=== PATIENT | male | born 1960 | race Caucasian/White ===

== ENCOUNTER 2021-04-18 03:43 | Day surgery (SDC) | payer OTHER ==
--- NOTE | 2021-04-18 04:18 | EDM.PDOC ---
ED HPI GENERAL MEDICAL PROBLEM - General Stated Complaint: CHEST PAIN Time Seen by Provider: 04/18/21 04:12 Source of Information: Reports: Patient History Limitations: Reports: No Limitations - History of Present Illness INITIAL COMMENTS - FREE TEXT/NARRATIVE: 61-year-old male who reports at about 2:58 AM on Sunday morning he awoke with pain in his central chest and upper abdomen. It did not radiate. It did seem to come and go. He states that it would last for about 2-3 hours and then seemed to go away for a short period of time and only come back. This pain is a sharp and sore pain. It does not radiate. It is not associated with any nausea or vomiting. It sometimes is worse with a deep breath. He reports that the pain began about 9:30 PM last night and has been unrelenting all through the night. He reports it is worse than it has been in the past. Still no nausea or vomiting. He has had normal bowel movements. He does report increased urination. He has been at an auction on Sunday and has been exposed to heat today as well. He does feel somewhat weak. No dysuria or hematuria. No change with eating. He does not feel that anything brings this on. He states he does have heart problems but the pain in the past "has not been like this pain". No hemoptysis. No cough. Breathing normally. There are no other associated signs or symptoms. There are no other modifying factors. Onset: Other (2-3 a.m. on 04/16/2021) Duration: Intermittent (Until 9:30 PM last night and it has been constant and continual since then) Location: Reports: Chest, Abdomen Quality: Reports: Sharp, Other (Sore.) Severity: Severe Improves with: Reports: None Worsens with: Reports: Breathing (Sometimes with deep breath.), Other (Palpation) Context: Reports: Other (As above.) Associated Symptoms: Reports: No Other Symptoms Treatments [employer] HAND: Reports: Acetaminophen - Related Data Allergies Allergy/AdvReac Type Severity Reaction Status Date / Time Penicillins Allergy Rash Verified 04/18/21 04:17 Home Meds: Home Meds Acetaminophen 500 mg PO BID 04/18/21 [History] Aspirin [Halfprin] 81 mg PO DAILY 04/18/21 [History] Calcium Carbonate/Vitamin D3 [Calcium 600-Vit D3 200 Tablet] 1 tab PO BEDTIME 04/18/21 [History] Clopidogrel [Plavix] 75 mg PO DAILY 04/18/21 [History] Empagliflozin [Jardiance] 25 mg PO DAILY 04/18/21 [History] Glimepiride [Amaryl] 4 mg PO DAILY 04/18/21 [History] Isosorbide Mononitrate [Imdur] 120 mg PO DAILY 04/18/21 [History] Metoprolol Succinate [Toprol XL 100mg] 100 mg PO DAILY 04/18/21 [History] Multivit with Minerals/Lutein [Vision Plus Lutein Vitamin] 1 each PO DAILY 04/18/21 [History] Multivitamin 1 each PO DAILY 04/18/21 [History] Nitroglycerin [Nitrostat] 0.4 mg SL ASDIRECTED 04/18/21 [History] Omeprazole 20 mg PO DAILY 04/18/21 [History] atorvaSTATin Calcium [Atorvastatin Calcium] 80 mg PO DAILY 04/18/21 [History] lisinopriL [Lisinopril] 10 mg PO DAILY 04/18/21 [History] metFORMIN [Glucophage] 1,000 mg PO BIDMEALS 04/18/21 [History] Past Medical History Cardiovascular History: Reports: Bypass, CAD, High Cholesterol, Hypertension, Stents Gastrointestinal History: Reports: GERD Endocrine/Metabolic History: Reports: Diabetes, Type II - Past Surgical History Cardiovascular Surgical History: Reports: Coronary Artery Bypass, Coronary Artery Stent Other Cardiovascular Surgeries/Procedures: CABG ~1999 Musculoskeletal Surgical History: Reports: Shoulder Surgery Other Musculoskeletal Surgeries/Procedures:: R shoulder arthroscopy ~2012. L shoulder arthroscopy 12-07-17 Social & Family History - Tobacco Use Tobacco Use Status *Q: Unknown Ever Used Tobacco (Nonsmoker.) - Alcohol Use Alcohol Use History: Yes Alcohol Use Frequency: Rarely - Living Situation & Occupation Living situation: Reports: Occupation: Retired (Works on his farm.) ED ROS GENERAL - Review of Systems Review Of Systems: See Below Constitutional: Denies: Fever, Chills HEENT: Denies: Rhinitis, Throat Pain Respiratory: Denies: Shortness of Breath, Cough Cardiovascular: Reports: Chest Pain. Denies: Edema, Lightheadedness Endocrine: Reports: Polydypsia, Polyuria GI/Abdominal: Reports: Abdominal Pain. Denies: Diarrhea, Nausea, Vomiting : Reports: Frequency, Other (Increased urine output). Denies: Dysuria Musculoskeletal: Denies: Neck Pain, Arm Pain, Back Pain, Foot Pain, Joint Swelling Skin: Denies: Pallor, Diaphoresis Neurological: Denies: Confusion, Dizziness, Weakness Psychiatric: Denies: Anxiety Hematologic/Lymphatic: Reports: Easy Bleeding (Plavix.) Immunologic: Denies: Seasonal Allergy, Grass Allergy, Pollen Allergy ED EXAM, GENERAL - Physical Exam Exam: See Below Exam Limited By: No Limitations General Appearance: Alert, WD/WN, Moderate Distress Eye Exam: Bilateral Eye: EOMI, Normal Inspection (Sclera are anicteric) Ears: Normal External Exam, Hearing Grossly Normal Ear Exam: Bilateral Ear: Auricle Normal Nose: Normal Inspection, Normal Mucosa, No Blood Throat/Mouth: Normal Voice, No Airway Compromise, Other (Dry mucous membranes.) Head: Atraumatic, Normocephalic Neck: Normal Inspection, Tender Lateral Respiratory/Chest: No Respiratory Distress, Lungs Clear, Normal Breath Sounds, No Accessory Muscle Use, Other (Tender in his lower central chest and his epigastrium and right upper quadrant.) Cardiovascular: Normal Peripheral Pulses, Regular Rate, Rhythm. No: Gallop/S4 Peripheral Pulses: 2+: Radial (L), Radial (R) GI/Abdominal: Normal Bowel Sounds, Soft, Pelvis Stable, Tender (In epigastrium and right upper quadrant.) Back Exam: Normal Inspection, Full Range of Motion. No: CVA Tenderness (R), CVA Tenderness (L) Extremities: Normal Inspection, Normal Range of Motion, Non-Tender, No Pedal Edema Neurological: Alert, Oriented, CN II-XII Intact, Normal Cognition, No Motor/Sensory Deficits Psychiatric: Normal Affect Skin Exam: Warm, Dry, Intact, Normal Color, No Rash #1 Interpretation EKG Date: 04/18/21 Time: 03:46 Rhythm: NSR Rate (Beats/Min): 89 [place]: Normal P-Wave: Present QRS: Other (Nonspecific IVCD.) ST-T: Other QT: Normal Comparison: NA - No Prior EKG Course - Vital Signs Last Recorded V/S: Last Vital Signs Temp 36.6 C 04/18/21 03:50 Pulse 98 04/18/21 06:45 Resp 18 04/18/21 06:45 BP 174/82 H 04/18/21 06:45 Pulse Ox 97 04/18/21 06:45 - Orders/Labs/Meds Orders: Active Orders 24 hr Category Date Time Status Admission Status [Patient Status] [ADT] Routine ADT 04/18/21 08:29 Ordered Accu Check [Blood Glucose Check, Bedside] [RC] ONETIME Care 04/18/21 07:32 Active EKG Documentation Completion [RC] ASDIRECTED Care 04/18/21 04:21 Active Abdomen Pelvis w Cont [CT] Stat Exams 04/18/21 05:24 Taken Ang Chest [CT] Stat Exams 04/18/21 05:24 Taken Chest 1V Frontal [CR] Stat Exams 04/18/21 04:19 Taken CORONAVIRUS COVID-19 CEM [MOLEC] Stat Lab 04/18/21 08:18 Ordered Sodium Chloride 0.9% [Normal Saline] 1,000 ml Med 04/18/21 04:45 Active IV ASDIRECTED Sodium Chloride 0.9% [Saline Flush] Med 04/18/21 04:19 Active 10 ml FLUSH ASDIRECTED PRN Peripheral IV Insertion Adult [OM.PC] Routine Oth 04/18/21 04:19 Ordered EKG 12 Lead [EK] Routine Ther 04/18/21 04:19 Ordered Medication Orders Sodium Chloride (Normal Saline) 1,000 mls @ 125 mls/hr IV ASDIRECTED TYLER Last Admin: 04/18/21 06:00 Dose: 125 mls/hr Documented by: BRENLOR Sodium Chloride (Sodium Chloride 0.9% 10 Ml Syringe) 10 ml FLUSH ASDIRECTED PRN PRN Reason: Keep Vein Open Labs: Laboratory Tests 04/18/21 04/18/21 04/18/21 Range/Units 04:30 04:30 04:30 WBC 19.2 H (3.2-10.1) x10-3/uL RBC 4.54 (3.90-5.90) x10(6)uL Hgb 14.8 (12.9-17.7) g/dL Hct 43.7 (38.3-50.1) % MCV 96.2 (80.8-98.7) fL MCH 32.5 (27.0-33.3) pg MCHC 33.8 (28.7-35.3) g/dL RDW 13.8 (12.4-15.0) % Plt Count 150 (117-477) x10(3)uL MPV 10.1 (6.7-11.0) fL Add Manual Diff Yes Neutrophils % (Manual) 77 (46-82) % Band Neutrophils % 5 (0-6) % Lymphocytes % (Manual) 12 L (13-37) % Monocytes % (Manual) 6 (4-12) % D-Dimer, Quantitative 0.85 H (0.0-0.59) mg/LFEU Sodium 138 (135-145) mmol/L Potassium 4.1 (3.5-5.3) mmol/L Chloride 101 (100-110) mmol/L Carbon Dioxide 24 (21-32) mmol/L BUN 20 H (7-18) mg/dL Creatinine 1.1 (0.70-1.30) mg/dL Est Cr Clr Drug Dosing 64.26 mL/min Estimated GFR (MDRD) > 60 (>60) BUN/Creatinine Ratio 18.2 (9-20) Glucose 114 (80-116) mg/dL POC Glucose (80-116) mg/dL Calcium 8.9 (8.6-10.2) mg/dL Magnesium 1.7 L (1.8-2.5) mg/dL Total Bilirubin 3.7 H (0.1-1.3) mg/dL AST 23 (5-25) IU/L ALT 57 H (12-36) U/L Alkaline Phosphatase 81 (56-112) IU/L Troponin I (4.0-60.3) pg/mL C-Reactive Protein (0.5-0.9) mg/dL Total Protein 7.6 (6.0-8.0) g/dL Albumin 3.7 (3.2-4.6) g/dL Globulin 3.9 g/dL Albumin/Globulin Ratio 1.0 Lipase (73-393) U/L 04/18/21 04/18/21 04/18/21 Range/Units 04:30 04:30 07:55 WBC (3.2-10.1) x10-3/uL RBC (3.90-5.90) x10(6)uL Hgb (12.9-17.7) g/dL Hct (38.3-50.1) % MCV (80.8-98.7) fL MCH (27.0-33.3) pg MCHC (28.7-35.3) g/dL RDW (12.4-15.0) % Plt Count (117-477) x10(3)uL MPV (6.7-11.0) fL Add Manual Diff Neutrophils % (Manual) (46-82) % Band Neutrophils % (0-6) % Lymphocytes % (Manual) (13-37) % Monocytes % (Manual) (4-12) % D-Dimer, Quantitative (0.0-0.59) mg/LFEU Sodium (135-145) mmol/L Potassium (3.5-5.3) mmol/L Chloride (100-110) mmol/L Carbon Dioxide (21-32) mmol/L BUN (7-18) mg/dL Creatinine (0.70-1.30) mg/dL Est Cr Clr Drug Dosing mL/min Estimated GFR (MDRD) (>60) BUN/Creatinine Ratio (9-20) Glucose (80-116) mg/dL POC Glucose 122 H (80-116) mg/dL Calcium (8.6-10.2) mg/dL Magnesium (1.8-2.5) mg/dL Total Bilirubin (0.1-1.3) mg/dL AST (5-25) IU/L ALT (12-36) U/L Alkaline Phosphatase (56-112) IU/L Troponin I 9.6 (4.0-60.3) pg/mL C-Reactive Protein 23.9 H* (0.5-0.9) mg/dL Total Protein (6.0-8.0) g/dL Albumin (3.2-4.6) g/dL Globulin g/dL Albumin/Globulin Ratio Lipase 68 L (73-393) U/L Meds: Medications Generic Name Dose Route Start Last Admin Trade Name Freq PRN Reason Stop Dose Admin Sodium Chloride 1,000 mls @ 125 mls/hr 04/18/21 04:45 04/18/21 06:00 Normal Saline IV 125 mls/hr ASDIRECTED TYLER Administration Sodium Chloride 10 ml 04/18/21 04:19 Sodium Chloride 0.9% 10 Ml Syringe FLUSH ASDIRECTED PRN Keep Vein Open Discontinued Medications Generic Name Dose Route Start Last Admin Trade Name Freq PRN Reason Stop Dose Admin Hydromorphone HCl 0.5 mg 04/18/21 07:16 04/18/21 07:21 Hydromorphone 2 Mg/Ml Sdv IVPUSH 04/18/21 07:17 0.5 mg ONETIME ONE Administration Sodium Chloride 1,000 mls @ 999 mls/hr 04/18/21 04:32 04/18/21 04:35 Normal Saline IV 04/18/21 05:32 999 mls/hr .BOLUS ONE Administration Ciprofloxacin/Dextrose 400 mg/ 200 mls @ 200 mls/hr 04/18/21 07:22 04/18/21 07:29 Premix IV 04/18/21 08:21 200 mls/hr ONETIME ONE Administration Metronidazole 500 mg/ Premix 100 mls @ 100 mls/hr 04/18/21 07:22 04/18/21 07:30 IV 04/18/21 08:21 100 mls/hr ONETIME ONE Administration Iopamidol 80 ml 04/18/21 05:46 04/18/21 05:59 Iopamidol 755 Mg/Ml 100 Ml Bottle IV 04/18/21 05:47 80 ml . DIRECTED ONE Administration Morphine Sulfate 4 mg 04/18/21 04:32 04/18/21 04:42 Morphine 4 Mg/Ml Vial IVPUSH 04/18/21 04:33 4 mg ONETIME ONE Administration Morphine Sulfate 4 mg 04/18/21 05:19 04/18/21 05:23 Morphine 4 Mg/Ml Vial IVPUSH 04/18/21 05:20 4 mg ONETIME ONE Administration Ondansetron HCl 4 mg 04/18/21 04:32 04/18/21 04:39 Ondansetron 4 Mg/2 Ml Sdv IVPUSH 04/18/21 04:33 4 mg ONETIME ONE Administration - Radiology Interpretation Free Text/Narrative:: Portable chest x-ray showed no acute disease. - Re-Assessments/Exams Free Text/Narrative Re-Assessment/Exam: 04/18/21 04:55: Pain is now down to a 4/10 after the morphine. Patient is remaining vitally stable. Awaiting on (this point and chest x-ray. His EKG shows no STEMI pattern. 04/18/21 05:20: The white blood cell count was 19.2. The CRP was 24. The total bilirubin was 3.7. LFTs are otherwise normal. Lipase is normal. On in his normal. His BUN and creatinine are normal. His d-dimer is elevated at 0.85. Because of pleuritic chest pain, I will order a CTA of his chest. I will also order a CT of his abdomen and pelvis with IV contrast as well. His pain was still a 3-4 red 10 and I have ordered another 4 mg of morphine to be given IV. His liter bolus of normal saline is almost in. I discussed all of this with the patient and with his and they are in agreement with the plan for the CT's. 04/18/21 06:30: Patient is resting comfortably. He had reported his pain was down to a 0-1/10. We are awaiting the results of the CT scan of his chest, abdomen and pelvis. Patient is remaining hemodynamically stable. 04/18/21 07:00: The CT of the chest showed no evidence of pulmonary emboli. The CT scan of abdomen and pelvis showed cholelithiasis with thickening of the gallbladder wall. There was no evidence of dilated CBD. The patient does have an elevated bilirubin at 3.7 but dilated common bile duct on CT scan. He does have pain in his right upper quadrant and epigastrium with elevated white blood cell count and CRP. I am concerned about acute cholecystitis. I have placed a call to Dr. Mccabe to discuss the patient's case with him. The patient remains hemodynamically stable and is resting comfortably now. 04/18/21 07:33: I discussed the patient's case with Dr. Mccabe, surgeon at [facility], and he will see the patient in the emergency department. I discussed all this with the patient and with the patient's and they are in agreement with this plan. I have also ordered ciprofloxacin and Flagyl to be given IV. I will have the nursing staff repeat the patient's blood sugar. We will continue the patient at NPO status for now. We will continue close monitoring of the patient. 04/18/21 08:25: Dr Mccabe has seen the patient and will be taking the patient to the operating room for cholecystectomy later today. He has asked that I have Dr. Lucio, hospitalist, see the patient and admit the patient. I did call and discuss this with Dr. Lucio and he will be coming to see the patient shortly. Departure - Departure Time of Disposition: 08:30 Disposition: Refer to Observation Condition: Fair Clinical Impression: Acute cholecystitis due to biliary calculus, Diabetes mellitus type 2 in nonobese Referrals: Stef Gonsalves MD [Primary Care Provider] - Sepsis Event Note (ED) - Focused Exam Vital Signs: Vital Signs Temp Pulse Resp BP Pulse Ox 04/18/21 06:45 98 18 174/82 H 97 04/18/21 05:45 94 18 144/67 H 94 L 04/18/21 05:30 94 16 159/68 H 94 L 04/18/21 05:15 94 16 162/108 H 96 04/18/21 05:00 94 16 152/96 H 99 04/18/21 04:45 98 18 165/100 H 99 04/18/21 04:15 97 18 162/81 H 97 04/18/21 03:50 36.6 C 04/18/21 03:45 93 16 159/81 H 97 - My Orders Last 24 Hours: My Active Orders 04/18/21 04:19 Chest 1V Frontal [CR] Stat Sodium Chloride 0.9% [Saline Flush] 10 ml FLUSH ASDIRECTED PRN Peripheral IV Insertion Adult [OM.PC] Routine EKG 12 Lead [EK] Routine 04/18/21 04:21 EKG Documentation Completion [RC] ASDIRECTED 04/18/21 04:45 Sodium Chloride 0.9% [Normal Saline] 1,000 ml IV ASDIRECTED 04/18/21 05:24 Abdomen Pelvis w Cont [CT] Stat Ang Chest [CT] Stat 04/18/21 07:32 Accu Check [Blood Glucose Check, Bedside] [RC] ONETIME 04/18/21 08:18 CORONAVIRUS COVID-19 CEM [MOLEC] Stat 04/18/21 08:29 Admission Status [Patient Status] [ADT] Routine - Assessment/Plan Last 24 Hours: My Active Orders 04/18/21 04:19 Chest 1V Frontal [CR] Stat Sodium Chloride 0.9% [Saline Flush] 10 ml FLUSH ASDIRECTED PRN Peripheral IV Insertion Adult [OM.PC] Routine EKG 12 Lead [EK] Routine 04/18/21 04:21 EKG Documentation Completion [RC] ASDIRECTED 04/18/21 04:45 Sodium Chloride 0.9% [Normal Saline] 1,000 ml IV ASDIRECTED 04/18/21 05:24 Abdomen Pelvis w Cont [CT] Stat Ang Chest [CT] Stat 04/18/21 07:32 Accu Check [Blood Glucose Check, Bedside] [RC] ONETIME 04/18/21 08:18 CORONAVIRUS COVID-19 CEM [MOLEC] Stat 04/18/21 08:29 Admission Status [Patient Status] [ADT] Routine
[2021-04-18] MEDS ORDERED: Sodium Chloride 0.9% 10 ML Syringe FLUSH PRN (04:19)
[2021-04-18] MEDS ORDERED: Ondansetron 4 MG/2 ML SDV IVPUSH ONE ×2 (04:32→09:04)
[2021-04-18] MEDS ORDERED: Morphine 4 MG/ML VIAL IVPUSH ONE ×2 (04:32→05:19)
[2021-04-18] MEDS ORDERED: Sodium Chloride 0.9% 1,000 ML IV ONE ×3 (04:32→21:01)
[2021-04-18] MEDS ORDERED: Sodium Chloride 0.9% 1,000 ML IV SCH (04:45)
[2021-04-18] MEDS ORDERED: Iopamidol 755 Mg/ML 100 ML Bottle IV ONE (05:46)
[2021-04-18] MEDS ORDERED: HYDROmorphone 2 MG/ML SDV IVPUSH ONE (07:16)
[2021-04-18] MEDS ORDERED: Ciprofloxacin in D5W 400 MG in Premix Bag 1 BAG IV ONE ×4 (07:22→12:30)
[2021-04-18] MEDS ORDERED: metroNIDAZOLE/Normal Saline 500 MG in Premix Bag 1 BAG IV ONE ×2 (07:22→12:30)
[2021-04-18] MEDS ORDERED: Propofol 200 MG/20 ML SDV IV ONE (09:04)
[2021-04-18] MEDS ORDERED: Labetalol 100 MG/20 ML MDV IV ONE (09:04)
[2021-04-18] MEDS ORDERED: Lactated Ringers 1,000 ML IV ONE (09:04)
[2021-04-18] MEDS ORDERED: Succinylcholine 200 MG/10 ML MDV IV ONE (09:04)
[2021-04-18] MEDS ORDERED: HYDROmorphone 2 MG/ML SDV IV ONE (09:04)
[2021-04-18] MEDS ORDERED: Neostigmine Methylsulfate 10 MG/10 ML MDV IVPUSH ONE (09:04)
[2021-04-18] MEDS ORDERED: Glycopyrrolate 0.2 MG/ML 5 ML MDV IV ONE (09:04)
[2021-04-18] MEDS ORDERED: Midazolam 1 MG/ML 2 ML SDV IV ONE (09:04)
[2021-04-18] MEDS ORDERED: Acetaminophen 1,000 MG/100 ML Infusion Bottle Premix IV ONE (09:04)
[2021-04-18] MEDS ORDERED: fentaNYL 100 MCG/2 ML SDV IV ONE (09:04)
[2021-04-18] MEDS ORDERED: Rocuronium 50 MG/5 ML Vial IV ONE (09:04)
--- NOTE | 2021-04-18 09:21 | PCM.HP.2 ---
H&P History of Present Illness - General Date of Service: 04/18/21 Admit Problem/Dx: Admission Diagnosis/Problem Admission Diagnosis/Problem Acute cholecystitis due to biliary calculus Source of Information: Patient History Limitations: Reports: No Limitations - History of Present Illness Initial Comments - Free Text/Narative: This is a 61-year-old male patient that started having some epigastric pain for a.m. Sunday morning which is 2 days ago. He was on oxygen and continued the pelvis because of the heat. He has some fevers and chills but he thought that was certainly 2. Later to get better and then Sunday morning came back and then Sunday morning at 3 AM it came back again and he came to the ER. Had a CT scan that showed cholelithiasis possible cholecystitis. He says the pain is epigastric and is very sharp. It did radiate down the side of his abdomen 2 then retracted back. It does not radiate to the arm or the back. He says he's not sure if food effects it. He has no nausea vomiting, diarrhea, constipation or blood in the stool. He has a strong cardiac history with a bypass in 1999. He's had stents 2 last time was 6 years ago. Currently he denies any chest pain, shortness of breath, exertional chest pain. He's been told he has a murmur. He can walk up 2 flights of stairs without any difficulty. Denies any bleeding issues. He is on Plavix and the last dose was taken yesterday. - Related Data Allergies/Adverse Reactions: Allergies Allergy/AdvReac Type Severity Reaction Status Date / Time Penicillins Allergy Rash Verified 04/18/21 04:17 Home Medications: Home Meds Acetaminophen 500 mg PO BID 04/18/21 [History] Aspirin [Halfprin] 81 mg PO DAILY 04/18/21 [History] Calcium Carbonate/Vitamin D3 [Calcium 600-Vit D3 200 Tablet] 1 tab PO BEDTIME 04/18/21 [History] Clopidogrel [Plavix] 75 mg PO DAILY 04/18/21 [History] Empagliflozin [Jardiance] 25 mg PO DAILY 04/18/21 [History] Glimepiride [Amaryl] 4 mg PO DAILY 04/18/21 [History] Isosorbide Mononitrate [Imdur] 120 mg PO DAILY 04/18/21 [History] Metoprolol Succinate [Toprol XL 100mg] 100 mg PO DAILY 04/18/21 [History] Multivit with Minerals/Lutein [Vision Plus Lutein Vitamin] 1 each PO DAILY 04/18/21 [History] Multivitamin 1 each PO DAILY 04/18/21 [History] Nitroglycerin [Nitrostat] 0.4 mg SL ASDIRECTED 04/18/21 [History] Omeprazole 20 mg PO DAILY 04/18/21 [History] atorvaSTATin Calcium [Atorvastatin Calcium] 80 mg PO DAILY 04/18/21 [History] lisinopriL [Lisinopril] 10 mg PO DAILY 04/18/21 [History] metFORMIN [Glucophage] 1,000 mg PO BIDMEALS 04/18/21 [History] Past Medical History Cardiovascular History: Reports: Bypass, CAD, High Cholesterol, Hypertension, Stents Gastrointestinal History: Reports: GERD Endocrine/Metabolic History: Reports: Diabetes, Type II - Past Surgical History Cardiovascular Surgical History: Reports: Coronary Artery Bypass, Coronary Artery Stent Social & Family History - Tobacco Use Tobacco Use Status *Q: Unknown Ever Used Tobacco (Nonsmoker.) - Alcohol Use Days Per Week of Alcohol Use: 2 Number of Drinks Per Day: 2 Total Drinks Per Week: 4 - Recreational Drug Use Recreational Drug Use: No - Living Situation & Occupation Living situation: Reports: Occupation: Retired (Works on his farm.) H&P Review of Systems - Review of Systems: Review Of Systems: See Below General: Reports: Fever, Chills HEENT: Reports: No Symptoms Pulmonary: Reports: No Symptoms Cardiovascular: Reports: No Symptoms Gastrointestinal: Reports: Abdominal Pain Genitourinary: Reports: No Symptoms Musculoskeletal: Reports: Joint Pain Skin: Reports: No Symptoms Psychiatric: Reports: No Symptoms Neurological: Reports: No Symptoms Hematologic/Lymphatic: Reports: No Symptoms Immunologic: Reports: No Symptoms Exam - Exam Exam: See Below - Vital Signs Vital Signs: Last Vital Signs Temp 97.8 F 04/18/21 03:50 Pulse 98 04/18/21 06:45 Resp 18 04/18/21 06:45 BP 174/82 H 04/18/21 06:45 Pulse Ox 97 04/18/21 06:45 Weight: 184 lb - Exam General: Alert, Oriented, Cooperative HEENT: Hearing Intact, Mucosa Moist & [place], Posterior Pharynx Clear, TMs Clear Neck: Supple, Trachea Midline Lungs: Clear to Auscultation, Normal Respiratory Effort Cardiovascular: Regular Rate, Regular Rhythm, Systolic Murmur GI/Abdominal Exam: Soft, No Organomegaly, No Distention, Tender (Epigastrium. No Hernandez's sign). No: Normal Bowel Sounds Extremities: Normal Inspection, No Pedal Edema Skin: Warm Neurological: Normal Speech, Normal Tone Neuro Extensive - Mental Status: Oriented x3, Normal Cognition Neuro Extensive - Motor, Sensory, Reflexes: Normal Gait Psychiatric: Alert, Normal Affect, Normal Mood - Patient Data Lab Results Last 24 hrs: Laboratory Results - last 24 hr 04/18/21 04/18/21 04/18/21 Range/Units 04:30 04:30 04:30 WBC 19.2 H (3.2-10.1) x10-3/uL RBC 4.54 (3.90-5.90) x10(6)uL Hgb 14.8 (12.9-17.7) g/dL Hct 43.7 (38.3-50.1) % MCV 96.2 (80.8-98.7) fL MCH 32.5 (27.0-33.3) pg MCHC 33.8 (28.7-35.3) g/dL RDW 13.8 (12.4-15.0) % Plt Count 150 (117-477) x10(3)uL MPV 10.1 (6.7-11.0) fL Add Manual Diff Yes Neutrophils % (Manual) 77 (46-82) % Band Neutrophils % 5 (0-6) % Lymphocytes % (Manual) 12 L (13-37) % Monocytes % (Manual) 6 (4-12) % D-Dimer, Quantitative 0.85 H (0.0-0.59) mg/LFEU Sodium 138 (135-145) mmol/L Potassium 4.1 (3.5-5.3) mmol/L Chloride 101 (100-110) mmol/L Carbon Dioxide 24 (21-32) mmol/L BUN 20 H (7-18) mg/dL Creatinine 1.1 (0.70-1.30) mg/dL Est Cr Clr Drug Dosing 64.26 mL/min Estimated GFR (MDRD) > 60 (>60) BUN/Creatinine Ratio 18.2 (9-20) Glucose 114 (80-116) mg/dL POC Glucose (80-116) mg/dL Calcium 8.9 (8.6-10.2) mg/dL Magnesium 1.7 L (1.8-2.5) mg/dL Total Bilirubin 3.7 H (0.1-1.3) mg/dL AST 23 (5-25) IU/L ALT 57 H (12-36) U/L Alkaline Phosphatase 81 (56-112) IU/L Troponin I (4.0-60.3) pg/mL C-Reactive Protein (0.5-0.9) mg/dL Total Protein 7.6 (6.0-8.0) g/dL Albumin 3.7 (3.2-4.6) g/dL Globulin 3.9 g/dL Albumin/Globulin Ratio 1.0 Lipase (73-393) U/L 04/18/21 04/18/21 04/18/21 Range/Units 04:30 04:30 07:55 WBC (3.2-10.1) x10-3/uL RBC (3.90-5.90) x10(6)uL Hgb (12.9-17.7) g/dL Hct (38.3-50.1) % MCV (80.8-98.7) fL MCH (27.0-33.3) pg MCHC (28.7-35.3) g/dL RDW (12.4-15.0) % Plt Count (117-477) x10(3)uL MPV (6.7-11.0) fL Add Manual Diff Neutrophils % (Manual) (46-82) % Band Neutrophils % (0-6) % Lymphocytes % (Manual) (13-37) % Monocytes % (Manual) (4-12) % D-Dimer, Quantitative (0.0-0.59) mg/LFEU Sodium (135-145) mmol/L Potassium (3.5-5.3) mmol/L Chloride (100-110) mmol/L Carbon Dioxide (21-32) mmol/L BUN (7-18) mg/dL Creatinine (0.70-1.30) mg/dL Est Cr Clr Drug Dosing mL/min Estimated GFR (MDRD) (>60) BUN/Creatinine Ratio (9-20) Glucose (80-116) mg/dL POC Glucose 122 H (80-116) mg/dL Calcium (8.6-10.2) mg/dL Magnesium (1.8-2.5) mg/dL Total Bilirubin (0.1-1.3) mg/dL AST (5-25) IU/L ALT (12-36) U/L Alkaline Phosphatase (56-112) IU/L Troponin I 9.6 (4.0-60.3) pg/mL C-Reactive Protein 23.9 H* (0.5-0.9) mg/dL Total Protein (6.0-8.0) g/dL Albumin (3.2-4.6) g/dL Globulin g/dL Albumin/Globulin Ratio Lipase 68 L (73-393) U/L Result Diagrams: 04/18/21 04:30 04/18/21 04:30 Sepsis Event Note - Evaluation Sepsis Screening Result: No Definite Risk - Focused Exam Vital Signs: Vital Signs Temp Pulse Resp BP Pulse Ox 04/18/21 06:45 98 18 174/82 H 97 04/18/21 05:45 94 18 144/67 H 94 L 04/18/21 05:30 94 16 159/68 H 94 L 04/18/21 05:15 94 16 162/108 H 96 04/18/21 05:00 94 16 152/96 H 99 04/18/21 04:45 98 18 165/100 H 99 04/18/21 04:15 97 18 162/81 H 97 04/18/21 03:50 97.8 F 04/18/21 03:45 93 16 159/81 H 97 Problem List Initiated/Reviewed/Updated: Yes Orders Last 24hrs: Active Orders 24 hr Category Date Time Status Admission Status [Patient Status] [ADT] Routine ADT 04/18/21 08:29 Active Accu Check [Blood Glucose Check, Bedside] [RC] ONETIME Care 04/18/21 07:32 Active EKG Documentation Completion [RC] ASDIRECTED Care 04/18/21 04:21 Active Abdomen Pelvis w Cont [CT] Stat Exams 04/18/21 05:24 Taken Ang Chest [CT] Stat Exams 04/18/21 05:24 Taken Chest 1V Frontal [CR] Stat Exams 04/18/21 04:19 Taken CORONAVIRUS COVID-19 CEM [MOLEC] Stat Lab 04/18/21 08:25 Ordered Sodium Chloride 0.9% [Normal Saline] 1,000 ml Med 04/18/21 04:45 Active IV ASDIRECTED Sodium Chloride 0.9% [Saline Flush] Med 04/18/21 04:19 Active 10 ml FLUSH ASDIRECTED PRN Peripheral IV Insertion Adult [OM.PC] Routine Oth 04/18/21 04:19 Ordered EKG 12 Lead [EK] Routine Ther 04/18/21 04:19 Ordered Medication Orders Sodium Chloride (Normal Saline) 1,000 mls @ 125 mls/hr IV ASDIRECTED [facility] Last Admin: 04/18/21 06:00 Dose: 125 mls/hr Documented by: ESTHER Sodium Chloride (Sodium Chloride 0.9% 10 Ml Syringe) 10 ml FLUSH ASDIRECTED PRN PRN Reason: Keep Vein Open Assessment/Plan Comment:: 1. Admit for observation 2. Surgical consult. Started been done by Dr. Mendoza. He will Operate later today. 3. Nothing by mouth 4. Rocephin and metronidazole IV 5. Accu-Cheks 4 times a day and sliding scale. 6. SCD but no Lovenox 7. Labs been completed. 8. Okay for surgery. EKG has been reviewed. - Mortality Measure Prognosis:: Good
[2021-04-18] MEDS ORDERED: Morphine 2 MG/ML SYRINGE IM PRN (09:25)
[2021-04-18] MEDS ORDERED: Nitroglycerin 0.4 MG Tab.SL SL SCH (09:30)
[2021-04-18] MEDS ORDERED: Morphine 2 MG/ML SYRINGE IVPUSH PRN ×2 (09:46→14:19)
--- NOTE | 2021-04-18 11:35 | CR ---
INDICATION: Chest pain. CHEST ONE VIEW: Portable AP upright view of the chest was obtained 04/18/21, no comparisons. Post median sternotomy change is noted. Pericardial effusion is not suggested. Overlying EKG leads are noted. The heart is normal in size and shape. An active infiltrate or effusion was not identified. IMPRESSION: No acute process. MTDD
--- NOTE | 2021-04-18 11:52 | CONS ---
DATE OF CONSULTATION: 04/18/2021 HISTORY OF PRESENT ILLNESS: This 61-year-old male is seen in the emergency room this morning with development of upper abdominal pain. He says his pain began approximately 48 hours ago, but has persisted and gradually intensified causing his presentation to the emergency room. The pain is primarily in the epigastrium, right upper quadrant and lower chest area. The patient states he did have an episode similar to this about a month ago, but the pain resolved within about 2 hours and he had felt well in between. The patient's pain is severe in nature and somewhat intermittent and crampy. The patient has not had any vomiting or diarrhea associated with this. The patient does recall eating turkey sandwiches the night before the pain started.He does have a history of abdominal bloating in the past, but he felt this was related to medication as it seemed to resolve when he had a change in his diabetic medication. To evaluate his symptoms, the patient underwent a CT scan of the abdomen in the emergency room. This was interpreted as showing a large calcified gallstone impacted in the neck of the gallbladder with some possible gallbladder inflammation. The gallbladder and liver were somewhat enlarged, but no other acute abnormalities were seen. The patient does not have any history of jaundice. Laboratory studies did show an elevated serum white blood cell count at 19,000. Also there is mild bilirubin elevation at over 3, although his alkaline phosphatase is normal. PAST MEDICAL HISTORY: Does include diagnoses of coronary artery disease for which he has had both coronary artery bypass as well as stenting. He also has diabetes and hypertension along with hypercholesterolemia and GERD. His only previous surgery was shoulder surgery, has not had previous abdominal surgery. MEDICATIONS: His medications are reviewed as in his EMR. They do include for his diabetes: 1. Metformin. 2. Jardiance. 3. Amaryl. He also takes: 1. Imdur. 2. Toprol. He takes on a daily basis: 1. Low-dose aspirin. 2. Plavix. SOCIAL HISTORY: The patient is a former smoker. He uses alcohol rarely. He is retired and previously worked at [employer]. REVIEW OF SYSTEMS: The patient has not recently been experiencing any shortness of breath or cough. He did get the COVID-19 vaccine. He has not had any chest pain or palpitations. He denies having difficulty eating. He is able to void without pain and is having no extremity swelling. PHYSICAL EXAMINATION: VITAL SIGNS: Temperature is 36.6, pulse 98, blood pressure is 174/82. GENERAL: The patient is alert, adult male. He is in no acute distress, but does note abdominal pain. HEENT: His head is normocephalic. No scleral icterus. No cervical masses are palpated. HEART: Regular without murmur. LUNGS: Clear. Breath sounds are equal. There is no wheezing. ABDOMEN: Currently soft. There is tenderness to direct palpation in the epigastrium and in the right upper quadrant. This is to a moderate degree. No guarding is noted. I do not feel any abdominal masses or hepatic or splenic enlargement. The remainder of his abdomen is nontender. EXTREMITIES: Show no edema. IMPRESSION: 1. Acute cholecystitis with cholelithiasis. 2. Diabetes. 3. History of coronary artery disease. 4. History of hypertension. PLAN: Advised laparoscopic cholecystectomy. INFORMED CONSENT: I have discussed the proposed operative procedure with the patient, reviewed with him indications, options, and risks, these included, but were not limited to, bleeding, infection, organ injury, and possible need to convert to a laparotomy as well as risks of anesthesia. He agrees to proceed. This will be scheduled for later today. His bilirubin will be followed postoperatively. It is expected that this will likely decrease once the stone and inflammation are removed. /[id number] XAVIER/ELAINE MALONE
[2021-04-18] MEDS ORDERED: Lactated Ringers 1,000 ML IV SCH ×2 (12:00→21:15)
[2021-04-18] MEDS ORDERED: Bupivacaine 0.5% 30 ML SDV INJECT ONE (12:11)
[2021-04-18] MEDS ORDERED: Acetaminophen/HYDROcodone 325-5 MG Tab PO PRN ×2 (14:19)
[2021-04-18] MEDS ORDERED: Ondansetron 4 MG/2 ML SDV IVPUSH PRN (14:19)
--- NOTE | 2021-04-18 14:55 | PCM.OPNOTE ---
- General Post-Op/Procedure Note Date of Surgery/Procedure: 04/18/21 Operative Procedure(s): Laparoscopic Cholecystectomy Findings: Enlarged acutely inflamed gallbladder with large and multiple small black stones Pre Op Diagnosis: Acute Cholecystitis with Cholelithiasis Post-Op Diagnosis: Same Anesthesia Technique: General ET Tube Primary Surgeon: Victor Hugo Mccabe Pathology: Gallbladder with stones EBL in mLs: 100 Complications: None Condition: Stable Free Text/Narrative:: Intake & Output 04/17/21 04/18/21 04/18/21 22:59 06:59 14:59 Intake Total 1000 Output Total Balance 1000 @
--- NOTE | 2021-04-18 15:53 | OR ---
DATE OF OPERATION: 04/18/2021 SURGEON: Victor Hugo Mccabe MD PREOPERATIVE DIAGNOSIS: Acute cholecystitis with cholelithiasis. POSTOPERATIVE DIAGNOSIS: Acute cholecystitis with cholelithiasis. OPERATION PERFORMED: Laparoscopic cholecystectomy. INDICATIONS FOR SURGERY: This 61-year-old male presented to the emergency room with severe upper abdominal pain. Workup identified cholelithiasis with evidence of an acutely inflamed gallbladder. This was felt to be the source of his symptoms and he comes for cholecystectomy. FINDINGS: The gallbladder is acutely inflamed. The gallbladder wall is markedly thickened and the back wall of the gallbladder is somewhat necrotic. There is exudate on surface of the gallbladder and dense omental adhesions to the surface of the gallbladder. The gallbladder contains a single large stone, but also many small black stones within it. The adjacent liver and other intraabdominal organs appear unremarkable as viewed laparoscopically. The patient is taking Plavix and there was noted excessive oozing from area such as the trocar sites, likely related to the use of Plavix. PROCEDURE IN DETAIL: The patient was taken to the operating room. He was given general endotracheal anesthesia. The abdomen was sterilely prepped and draped. A supraumbilical stab wound incision was made. Through this, a Veress needle was inserted and pneumoperitoneum via this needle to a pressure of 15 mmHg was achieved with carbon dioxide. The Veress needle was then replaced with a 12 mm trocar into which the 5 mm variable angled laparoscopic camera is inserted. Under direct visualization, 5 mm trocars were placed in the subxiphoid midline and in 2 areas of the right abdomen all trocar sites were infiltrated with Marcaine prior to incision. Intra-abdominal inspection was carried out and attention was turned to the gallbladder. The omental adhesions to the gallbladder were carefully taken down with blunt and cautery dissection, exposing an enlarged tense gallbladder with some surface exudate. In order to decompress the gallbladder and make it easier to manipulate, the aspirating needle was inserted into the gallbladder with aspiration of bile allowing decompression of the gallbladder. This then allowed the gallbladder to be secured with grasping forceps placed through the lateral trocars and retracted superiorly and anteriorly. Carefully, the fatty tissue overlying the lower portion of the gallbladder was dissected clear, and the cystic duct and cystic artery are clearly identified. Dissection in the triangle of [place] did identify 2 cystic arteries and these were both doubly clipped and divided. The cystic duct once it had been clearly identified including its junction with the gallbladder is milked and then it too was doubly clipped and divided near the gallbladder with great care being used to avoid any injury or compromise to the common bile duct. The gallbladder was then dissected free from the undersurface of the liver. This dissection was difficult because of the vascularity of the tissue as well as the dense adherence of the gallbladder to the undersurface of the liver, especially in its more anterior aspect, but with careful dissection, gallbladder was able to be eventually dissected free off the liver. The gallbladder was opened during this dissection and there were some bile and stone spillage. Once the gallbladder had been completely freed, it was placed into an Endo retrieval bag and extracted through the umbilical trocar site. Reinspection of the operative region identified a large gallstone as well as another nodule likely fatty tissue. The stone in this nodule was placed into another Endo retrieval bag and they were also extracted through the umbilical trocar site. Copious irrigation of the operative region and the abdominal cavity were carried out. There had been some oozing from the trocar site causing some blood to collect in the lower abdomen. This was carefully cleared out with copious irrigation and inspection did not show any further bleeding from this area. The gallbladder bed was irrigated and multiple small stones that had spilled from the gallbladder were suctioned out. Once irrigation and suctioning had cleared the area, all stones appeared to be removed. Surgicel is placed into the bed of the gallbladder to assure maintenance of good hemostasis and with no sign of any complication, the trocars were removed and pneumoperitoneum was evacuated. The fascia of the umbilical trocar site was closed with a [id number] Vicryl suture. Wounds were irrigated with Betadine and saline solution. Skin incision was approximated with interrupted 4- 0 Vicryl in a subcuticular stitch. Antibiotic ointment and sterile dressings were placed. The patient was then awakened, extubated, and taken from the operating room in satisfactory condition. ESTIMATED BLOOD LOSS: 100 mL. COMPLICATIONS: None. PROGNOSIS: Good. /[id number] XAVIER/ELAINE MALONE
--- NOTE | 2021-04-18 19:10 | PCM.SURGPN ---
- General Info Date of Service: 04/18/21 Date of Surgery/Procedure: 04/18/21 POD#: 0 Post-Op Diagnosis: Acute Cholecystitis with Cholelithiasis - Review of Systems Systems Review Comment:: Patient had fainting episode while up to bathroom. No longer feeling hot. States somewhat hard to take deep breath but denies abdominal pain. Has voided x2 of 200cc each since surgery. Vs stable but after episode BP dropped to 86 systolic, patient remains somewhat tachycardic Patient arousable and responds appropriately does not feel hot like he did earlier in recovery. Heart - regular at about 120 Lungs - clear Abdomen - soft, no distention, expected tenderness near incisions, no tenderness on left side Extremities - no edema, moves all well with equal strength EKG repeated and shows no acute changes from preoperative CBC shows chemistry stable and bili down to 3.2 Hgb to 11.2 - slight decrease from initial post op - Patient Data Vitals - Most Recent: Last Vital Signs Temp 97.9 F 04/18/21 17:24 Pulse 121 H 04/18/21 18:36 Resp 20 04/18/21 18:36 BP 98/68 04/18/21 18:36 Pulse Ox 97 04/18/21 18:36 Weight - Most Recent: 185 lb I&O - Last 24 Hours: Intake & Output 04/18/21 04/18/21 04/18/21 06:59 14:59 22:59 Intake Total 1000 Output Total Balance 1000 @ Lab Results Last 24 Hrs: Laboratory Results - last 24 hr 04/18/21 04/18/21 04/18/21 Range/Units 04:30 04:30 04:30 WBC 19.2 H (3.2-10.1) x10-3/uL RBC 4.54 (3.90-5.90) x10(6)uL Hgb 14.8 (12.9-17.7) g/dL Hct 43.7 (38.3-50.1) % MCV 96.2 (80.8-98.7) fL MCH 32.5 (27.0-33.3) pg MCHC 33.8 (28.7-35.3) g/dL RDW 13.8 (12.4-15.0) % Plt Count 150 (117-477) x10(3)uL MPV 10.1 (6.7-11.0) fL Add Manual Diff Yes Neutrophils % (Manual) 77 (46-82) % Band Neutrophils % 5 (0-6) % Lymphocytes % (Manual) 12 L (13-37) % Monocytes % (Manual) 6 (4-12) % D-Dimer, Quantitative 0.85 H (0.0-0.59) mg/LFEU Sodium 138 (135-145) mmol/L Potassium 4.1 (3.5-5.3) mmol/L Chloride 101 (100-110) mmol/L Carbon Dioxide 24 (21-32) mmol/L BUN 20 H (7-18) mg/dL Creatinine 1.1 (0.70-1.30) mg/dL Est Cr Clr Drug Dosing 64.26 mL/min Estimated GFR (MDRD) > 60 (>60) BUN/Creatinine Ratio 18.2 (9-20) Glucose 114 (80-116) mg/dL POC Glucose (80-116) mg/dL Calcium 8.9 (8.6-10.2) mg/dL Magnesium 1.7 L (1.8-2.5) mg/dL Total Bilirubin 3.7 H (0.1-1.3) mg/dL AST 23 (5-25) IU/L ALT 57 H (12-36) U/L Alkaline Phosphatase 81 (56-112) IU/L Troponin I (4.0-60.3) pg/mL C-Reactive Protein (0.5-0.9) mg/dL Total Protein 7.6 (6.0-8.0) g/dL Albumin 3.7 (3.2-4.6) g/dL Globulin 3.9 g/dL Albumin/Globulin Ratio 1.0 Lipase (73-393) U/L SARS-CoV-2 RNA (CEM) (NEGATIVE) 04/18/21 04/18/21 04/18/21 Range/Units 04:30 04:30 07:55 WBC (3.2-10.1) x10-3/uL RBC (3.90-5.90) x10(6)uL Hgb (12.9-17.7) g/dL Hct (38.3-50.1) % MCV (80.8-98.7) fL MCH (27.0-33.3) pg MCHC (28.7-35.3) g/dL RDW (12.4-15.0) % Plt Count (117-477) x10(3)uL MPV (6.7-11.0) fL Add Manual Diff Neutrophils % (Manual) (46-82) % Band Neutrophils % (0-6) % Lymphocytes % (Manual) (13-37) % Monocytes % (Manual) (4-12) % D-Dimer, Quantitative (0.0-0.59) mg/LFEU Sodium (135-145) mmol/L Potassium (3.5-5.3) mmol/L Chloride (100-110) mmol/L Carbon Dioxide (21-32) mmol/L BUN (7-18) mg/dL Creatinine (0.70-1.30) mg/dL Est Cr Clr Drug Dosing mL/min Estimated GFR (MDRD) (>60) BUN/Creatinine Ratio (9-20) Glucose (80-116) mg/dL POC Glucose 122 H (80-116) mg/dL Calcium (8.6-10.2) mg/dL Magnesium (1.8-2.5) mg/dL Total Bilirubin (0.1-1.3) mg/dL AST (5-25) IU/L ALT (12-36) U/L Alkaline Phosphatase (56-112) IU/L Troponin I 9.6 (4.0-60.3) pg/mL C-Reactive Protein 23.9 H* (0.5-0.9) mg/dL Total Protein (6.0-8.0) g/dL Albumin (3.2-4.6) g/dL Globulin g/dL Albumin/Globulin Ratio Lipase 68 L (73-393) U/L SARS-CoV-2 RNA (CEM) (NEGATIVE) 04/18/21 04/18/21 04/18/21 Range/Units 08:25 15:22 15:48 WBC (3.2-10.1) x10-3/uL RBC (3.90-5.90) x10(6)uL Hgb 12.7 L (12.9-17.7) g/dL Hct (38.3-50.1) % MCV (80.8-98.7) fL MCH (27.0-33.3) pg MCHC (28.7-35.3) g/dL RDW (12.4-15.0) % Plt Count (117-477) x10(3)uL MPV (6.7-11.0) fL Add Manual Diff Neutrophils % (Manual) (46-82) % Band Neutrophils % (0-6) % Lymphocytes % (Manual) (13-37) % Monocytes % (Manual) (4-12) % D-Dimer, Quantitative (0.0-0.59) mg/LFEU Sodium (135-145) mmol/L Potassium (3.5-5.3) mmol/L Chloride (100-110) mmol/L Carbon Dioxide (21-32) mmol/L BUN (7-18) mg/dL Creatinine (0.70-1.30) mg/dL Est Cr Clr Drug Dosing mL/min Estimated GFR (MDRD) (>60) BUN/Creatinine Ratio (9-20) Glucose (80-116) mg/dL POC Glucose 225 H D (80-116) mg/dL Calcium (8.6-10.2) mg/dL Magnesium (1.8-2.5) mg/dL Total Bilirubin (0.1-1.3) mg/dL AST (5-25) IU/L ALT (12-36) U/L Alkaline Phosphatase (56-112) IU/L Troponin I (4.0-60.3) pg/mL C-Reactive Protein (0.5-0.9) mg/dL Total Protein (6.0-8.0) g/dL Albumin (3.2-4.6) g/dL Globulin g/dL Albumin/Globulin Ratio Lipase (73-393) U/L SARS-CoV-2 RNA (CEM) Negative (NEGATIVE) 04/18/21 04/18/21 04/18/21 Range/Units 18:09 18:25 18:25 WBC 22.1 H (3.2-10.1) x10-3/uL RBC 3.52 L (3.90-5.90) x10(6)uL Hgb 11.2 L (12.9-17.7) g/dL Hct 34.8 L (38.3-50.1) % MCV 99.0 H (80.8-98.7) fL MCH 31.9 (27.0-33.3) pg MCHC 32.2 (28.7-35.3) g/dL RDW 14.0 (12.4-15.0) % Plt Count 246 (117-477) x10(3)uL MPV 10.5 (6.7-11.0) fL Add Manual Diff Yes Neutrophils % (Manual) (46-82) % Band Neutrophils % (0-6) % Lymphocytes % (Manual) (13-37) % Monocytes % (Manual) (4-12) % D-Dimer, Quantitative (0.0-0.59) mg/LFEU Sodium 137 (135-145) mmol/L Potassium 4.8 (3.5-5.3) mmol/L Chloride 102 (100-110) mmol/L Carbon Dioxide 18 L (21-32) mmol/L BUN 17 (7-18) mg/dL Creatinine 1.2 (0.70-1.30) mg/dL Est Cr Clr Drug Dosing 58.91 mL/min Estimated GFR (MDRD) > 60 (>60) BUN/Creatinine Ratio 14.2 (9-20) Glucose 289 H D (80-116) mg/dL POC Glucose 231 H (80-116) mg/dL Calcium 7.9 L (8.6-10.2) mg/dL Magnesium (1.8-2.5) mg/dL Total Bilirubin 3.2 H (0.1-1.3) mg/dL AST 35 H D (5-25) IU/L ALT 60 H (12-36) U/L Alkaline Phosphatase 70 (56-112) IU/L Troponin I (4.0-60.3) pg/mL C-Reactive Protein (0.5-0.9) mg/dL Total Protein 6.1 (6.0-8.0) g/dL Albumin 2.7 L (3.2-4.6) g/dL Globulin 3.4 g/dL Albumin/Globulin Ratio 0.8 Lipase (73-393) U/L SARS-CoV-2 RNA (CEM) (NEGATIVE) Med Orders - Current: Current Medications Hydrocodone Bitart/Acetaminophen (Acetaminophen/Hydrocodone 325-5 Mg Tab) 1 tab PO Q4H PRN PRN Reason: Pain (mild 1-3) Last Admin: 04/18/21 17:31 Dose: 1 tab Documented by: Hydrocodone Bitart/Acetaminophen (Acetaminophen/Hydrocodone 325-5 Mg Tab) 2 tab PO Q4H PRN PRN Reason: Pain (moderate 4-6) Sodium Chloride (Normal Saline) 1,000 mls @ 125 mls/hr IV ASDIRECTED [facility] Last Admin: 04/18/21 06:00 Dose: 125 mls/hr Documented by: Ciprofloxacin/Dextrose 400 mg/ (Premix) 200 mls @ 200 mls/hr IV Q12H [facility] Metronidazole 500 mg/ Premix 100 mls @ 100 mls/hr IV Q8H [facility] Isosorbide Mononitrate (Isosorbide Mononitrate 60 Mg Tab.Er) 120 mg PO DAILY [facility] Lisinopril (Lisinopril 10 Mg Tab) 10 mg PO DAILY [facility] Metoprolol Succinate (Metoprolol Succinate 100 Mg Tab.Er) 100 mg PO DAILY [facility] Morphine Sulfate (Morphine 2 Mg/Ml Syringe) 2 mg IVPUSH Q1H PRN PRN Reason: Pain (severe 7-10) Nitroglycerin (Nitroglycerin 0.4 Mg Tab.Sl) 0.4 mg SL ASDIRECTED [facility] Ondansetron HCl (Ondansetron 4 Mg/2 Ml Sdv) 4 mg IVPUSH Q6H PRN PRN Reason: Nausea/Vomiting Last Admin: 04/18/21 17:31 Dose: 4 mg Documented by: Sodium Chloride (Sodium Chloride 0.9% 10 Ml Syringe) 10 ml FLUSH ASDIRECTED PRN PRN Reason: Keep Vein Open Last Admin: 04/18/21 17:31 Dose: 10 ml Documented by: Discontinued Medications Bupivacaine HCl (Bupivacaine 0.5% 30 Ml Sdv) 20 ml INJECT .STK-MED ONE Stop: 04/18/21 12:12 Last Admin: 04/18/21 12:11 Dose: 20 ml Documented by: Hydromorphone HCl (Hydromorphone 2 Mg/Ml Sdv) 0.5 mg IVPUSH ONETIME ONE Stop: 04/18/21 07:17 Last Admin: 04/18/21 07:21 Dose: 0.5 mg Documented by: Sodium Chloride (Normal Saline) 1,000 mls @ 999 mls/hr IV .BOLUS ONE Stop: 04/18/21 05:32 Last Admin: 04/18/21 04:35 Dose: 999 mls/hr Documented by: Ciprofloxacin/Dextrose 400 mg/ (Premix) 200 mls @ 200 mls/hr IV ONETIME ONE Stop: 04/18/21 08:21 Last Admin: 04/18/21 07:29 Dose: 200 mls/hr Documented by: Metronidazole 500 mg/ Premix 100 mls @ 100 mls/hr IV ONETIME ONE Stop: 04/18/21 08:21 Last Admin: 04/18/21 07:30 Dose: 100 mls/hr Documented by: Ciprofloxacin/Dextrose 400 mg/ (Premix) 200 mls @ 200 mls/hr IV ONETIME ONE Stop: 04/18/21 13:29 Last Admin: 04/18/21 12:26 Dose: 200 mls/hr Documented by: Metronidazole 500 mg/ Premix 100 mls @ 100 mls/hr IV ONETIME ONE Stop: 04/18/21 13:29 Last Admin: 04/18/21 12:37 Dose: 100 mls/hr Documented by: Lactated Ringer's (Ringers, Lactated) 1,000 mls @ 125 mls/hr IV ASDIRECTED [facility] Last Admin: 04/18/21 15:38 Dose: 125 mls/hr Documented by: Iopamidol (Iopamidol 755 Mg/Ml 100 Ml Bottle) 80 ml IV . DIRECTED ONE Stop: 04/18/21 05:47 Last Admin: 04/18/21 05:59 Dose: 80 ml Documented by: Morphine Sulfate (Morphine 4 Mg/Ml Vial) 4 mg IVPUSH ONETIME ONE Stop: 04/18/21 04:33 Last Admin: 04/18/21 04:42 Dose: 4 mg Documented by: Morphine Sulfate (Morphine 4 Mg/Ml Vial) 4 mg IVPUSH ONETIME ONE Stop: 04/18/21 05:20 Last Admin: 04/18/21 05:23 Dose: 4 mg Documented by: Morphine Sulfate (Morphine 2 Mg/Ml Syringe) 2 mg IM Q2H PRN PRN Reason: Pain Morphine Sulfate (Morphine 2 Mg/Ml Syringe) 2 mg IVPUSH Q2H PRN PRN Reason: Pain Last Admin: 04/18/21 10:06 Dose: 2 mg Documented by: Ondansetron HCl (Ondansetron 4 Mg/2 Ml Sdv) 4 mg IVPUSH ONETIME ONE Stop: 04/18/21 04:33 Last Admin: 04/18/21 04:39 Dose: 4 mg Documented by: Sepsis Event Note - Evaluation Sepsis Screening Result: No Definite Risk - Focused Exam Vital Signs: Vital Signs Temp Temp Pulse Resp BP Pulse Ox 04/18/21 18:36 121 H 20 98/68 97 04/18/21 17:24 97.9 F 105 H 16 118/76 98 04/18/21 16:48 98.1 F 102 H 18 117/76 97 04/18/21 16:35 98.1 F 98 16 108/78 99 04/18/21 16:16 98.2 F 103 H 16 112/78 99 04/18/21 16:15 120 H 20 86/57 L 99 04/18/21 16:00 97.5 F 95 16 112/71 94 L 04/18/21 15:35 18 115/70 99 04/18/21 15:30 16 95/68 97 04/18/21 15:25 15 101/65 98 04/18/21 15:20 16 112/72 98 04/18/21 15:15 15 102/71 98 04/18/21 15:10 97.2 F 16 110/64 97 04/18/21 15:05 12 111/68 98 04/18/21 15:00 14 123/66 97 04/18/21 14:55 14 124/68 95 04/18/21 14:50 20 127/76 95 04/18/21 14:45 12 124/77 99 04/18/21 14:40 18 133/79 99 04/18/21 14:35 98.9 F 18 131/77 98 04/18/21 09:10 99.0 F 110 H 178/98 H 96 - Problem List Review Problem List Initiated/Reviewed/Updated: Yes - My Orders Last 24 Hours: Active Orders 24 hr Category Date Time Status Admission Status [Patient Status] [ADT] Routine ADT 04/18/21 08:29 Active Patient Status [ADT] Routine ADT 04/18/21 14:19 Active Accu Check [Blood Glucose Check, Bedside] [RC] 07,17 Care 04/18/21 09:26 Active Antiembolic Devices [RC] .Routine Care 04/18/21 14:21 Active EKG Documentation Completion [RC] ASDIRECTED Care 04/18/21 18:14 Active Intake and Output [RC] QSHIFT Care 04/18/21 14:20 Active Oxygen Therapy [RC] PRN Care 04/18/21 14:19 Active Oxygen Therapy [RC] PRN Care 04/18/21 14:23 Active RT Incentive Spirometry [RC] Q1HWA Care 04/18/21 14:19 Active VTE/DVT Education [RC] Click to Edit Care 04/18/21 14:21 Active Vital Signs [RC] PER UNIT ROUTINE Care 04/18/21 14:19 Active Vital Signs [RC] PER UNIT ROUTINE Care 04/18/21 14:23 Active Consult to Physician [CONS] Routine Cons 04/18/21 09:28 Ordered Clear Liquid Diet [DIET] Diet 04/18/21 Dinner Ordered Abdomen Pelvis w Cont [CT] Stat Exams 04/18/21 05:24 Taken Ang Chest [CT] Stat Exams 04/18/21 05:24 Taken CBC WITH AUTO DIFF [HEME] AM Lab 04/19/21 05:11 Ordered CBC WITH AUTO DIFF [HEME] Routine Lab 04/18/21 18:25 Results COMPREHENSIVE METABOLIC PN,CMP [CHEM] AM Lab 04/19/21 05:11 Ordered LACTIC ACID [CHEM] Routine Lab 04/18/21 19:01 Ordered Acetaminophen/HYDROcodone [Roberts 325-5 MG] Med 04/18/21 14:19 Active 1 tab PO Q4H PRN Acetaminophen/HYDROcodone [Roberts 325-5 MG] Med 04/18/21 14:19 Active 2 tab PO Q4H PRN Ciprofloxacin in D5W [Cipro in D5W 400 MG/200 ML] 400 Med 04/19/21 01:00 Active mg Premix Bag 1 bag IV Q12H Isosorbide Mononitrate [Imdur] Med 04/19/21 09:00 Active 120 mg PO DAILY Metoprolol Succinate [Toprol XL] Med 04/19/21 09:00 Active 100 mg PO DAILY Morphine Med 04/18/21 14:19 Active 2 mg IVPUSH Q1H PRN Nitroglycerin [Nitrostat] Med 04/18/21 09:30 Active 0.4 mg SL ASDIRECTED Ondansetron [Zofran] Med 04/18/21 14:19 Active 4 mg IVPUSH Q6H PRN Sodium Chloride 0.9% [Normal Saline] 1,000 ml Med 04/18/21 04:45 Active IV ASDIRECTED Sodium Chloride 0.9% [Saline Flush] Med 04/18/21 04:19 Active 10 ml FLUSH ASDIRECTED PRN lisinopriL [Prinivil] Med 04/19/21 09:00 Active 10 mg PO DAILY metroNIDAZOLE/Normal Saline [Flagyl in NS 500 MG/100 ML Med 04/18/21 20:00 Active ] 500 mg Premix Bag 1 bag IV Q8H DVT/VTE Prophylaxis Reflex [OM.PC] Per Unit Routine Oth 04/18/21 14:21 Ordered Peripheral IV Insertion Adult [OM.PC] Routine Oth 04/18/21 04:19 Ordered Pulse Oximetry Continuous Monitoring [OM.PC] Routine Oth 04/18/21 15:00 Ordered Resuscitation Status Routine Resus Stat 04/18/21 14:19 Ordered EKG 12 Lead [EK] Routine Ther 04/18/21 04:19 Ordered EKG 12 Lead [EK] Routine Ther 04/18/21 18:14 Ordered Medication Orders Hydrocodone Bitart/Acetaminophen (Acetaminophen/Hydrocodone 325-5 Mg Tab) 1 tab PO Q4H PRN PRN Reason: Pain (mild 1-3) Last Admin: 04/18/21 17:31 Dose: 1 tab Documented by: VERA Hydrocodone Bitart/Acetaminophen (Acetaminophen/Hydrocodone 325-5 Mg Tab) 2 tab PO Q4H PRN PRN Reason: Pain (moderate 4-6) Sodium Chloride (Normal Saline) 1,000 mls @ 125 mls/hr IV ASDIRECTED [facility] Last Admin: 04/18/21 06:00 Dose: 125 mls/hr Documented by: ESTHER Ciprofloxacin/Dextrose 400 mg/ (Premix) 200 mls @ 200 mls/hr IV Q12H [facility] Metronidazole 500 mg/ Premix 100 mls @ 100 mls/hr IV Q8H [facility] Isosorbide Mononitrate (Isosorbide Mononitrate 60 Mg Tab.Er) 120 mg PO DAILY [facility] Lisinopril (Lisinopril 10 Mg Tab) 10 mg PO DAILY [facility] Metoprolol Succinate (Metoprolol Succinate 100 Mg Tab.Er) 100 mg PO DAILY [facility] Morphine Sulfate (Morphine 2 Mg/Ml Syringe) 2 mg IVPUSH Q1H PRN PRN Reason: Pain (severe 7-10) Nitroglycerin (Nitroglycerin 0.4 Mg Tab.Sl) 0.4 mg SL ASDIRECTED [facility] Ondansetron HCl (Ondansetron 4 Mg/2 Ml Sdv) 4 mg IVPUSH Q6H PRN PRN Reason: Nausea/Vomiting Last Admin: 04/18/21 17:31 Dose: 4 mg Documented by: VERA Sodium Chloride (Sodium Chloride 0.9% 10 Ml Syringe) 10 ml FLUSH ASDIRECTED PRN PRN Reason: Keep Vein Open Last Admin: 04/18/21 17:31 Dose: 10 ml Documented by: VERA - Assessment Assessment (Free Text/Narrative):: Decrease BP post op with fainting spell when up Labs and EKG stable - Plan Plan (Free Text/Narrative):: Fluid bolus given Will observe
[2021-04-18] MEDS ORDERED: metroNIDAZOLE/Normal Saline 500 MG in Premix Bag 1 BAG IV SCH (20:00)
--- NOTE | 2021-04-18 20:46 | PCM.SURGPN ---
- General Info Date of Service: 04/18/21 - Review of Systems Systems Review Comment:: Patient has had some improvement with IV fluids BP - 100, P-120 UO - good - urine clear O2-Sat good with low dose supplemental Oxygen Additional labs show High Lactic Acid of 5.6, Troponin 10.6 Patient's abdomen remains soft with expected tenderness near incisions Suspect patient experiencing septic shock - Phone consult with [employer] performed by Dr. Jeter. Feel patient needs higher level of care then can be provided at this facility and transfer to tertiary care hospital arranged. Will transfer by ambulance tonight. Discussed with patient and . - Patient Data Vitals - Most Recent: Last Vital Signs Temp 97.4 F 04/18/21 20:15 Pulse 124 H 04/18/21 20:33 Resp 32 H 04/18/21 20:33 BP 107/75 04/18/21 20:33 Pulse Ox 100 04/18/21 20:33 Weight - Most Recent: 185 lb I&O - Last 24 Hours: Intake & Output 04/18/21 04/18/21 04/18/21 06:59 14:59 22:59 Intake Total 1000 Output Total 500 Balance 1000 @ -500 Lab Results Last 24 Hrs: Laboratory Results - last 24 hr 04/18/21 04/18/21 04/18/21 Range/Units 04:30 04:30 04:30 WBC 19.2 H (3.2-10.1) x10-3/uL RBC 4.54 (3.90-5.90) x10(6)uL Hgb 14.8 (12.9-17.7) g/dL Hct 43.7 (38.3-50.1) % MCV 96.2 (80.8-98.7) fL MCH 32.5 (27.0-33.3) pg MCHC 33.8 (28.7-35.3) g/dL RDW 13.8 (12.4-15.0) % Plt Count 150 (117-477) x10(3)uL MPV 10.1 (6.7-11.0) fL Add Manual Diff Yes Neutrophils % (Manual) 77 (46-82) % Band Neutrophils % 5 (0-6) % Lymphocytes % (Manual) 12 L (13-37) % Monocytes % (Manual) 6 (4-12) % D-Dimer, Quantitative 0.85 H (0.0-0.59) mg/LFEU Sodium 138 (135-145) mmol/L Potassium 4.1 (3.5-5.3) mmol/L Chloride 101 (100-110) mmol/L Carbon Dioxide 24 (21-32) mmol/L BUN 20 H (7-18) mg/dL Creatinine 1.1 (0.70-1.30) mg/dL Est Cr Clr Drug Dosing 64.26 mL/min Estimated GFR (MDRD) > 60 (>60) BUN/Creatinine Ratio 18.2 (9-20) Glucose 114 (80-116) mg/dL POC Glucose (80-116) mg/dL Lactic Acid (0.4-2.0) mmol/L Calcium 8.9 (8.6-10.2) mg/dL Magnesium 1.7 L (1.8-2.5) mg/dL Total Bilirubin 3.7 H (0.1-1.3) mg/dL AST 23 (5-25) IU/L ALT 57 H (12-36) U/L Alkaline Phosphatase 81 (56-112) IU/L Troponin I (4.0-60.3) pg/mL C-Reactive Protein (0.5-0.9) mg/dL Total Protein 7.6 (6.0-8.0) g/dL Albumin 3.7 (3.2-4.6) g/dL Globulin 3.9 g/dL Albumin/Globulin Ratio 1.0 Lipase (73-393) U/L SARS-CoV-2 RNA (CEM) (NEGATIVE) 04/18/21 04/18/21 04/18/21 Range/Units 04:30 04:30 07:55 WBC (3.2-10.1) x10-3/uL RBC (3.90-5.90) x10(6)uL Hgb (12.9-17.7) g/dL Hct (38.3-50.1) % MCV (80.8-98.7) fL MCH (27.0-33.3) pg MCHC (28.7-35.3) g/dL RDW (12.4-15.0) % Plt Count (117-477) x10(3)uL MPV (6.7-11.0) fL Add Manual Diff Neutrophils % (Manual) (46-82) % Band Neutrophils % (0-6) % Lymphocytes % (Manual) (13-37) % Monocytes % (Manual) (4-12) % D-Dimer, Quantitative (0.0-0.59) mg/LFEU Sodium (135-145) mmol/L Potassium (3.5-5.3) mmol/L Chloride (100-110) mmol/L Carbon Dioxide (21-32) mmol/L BUN (7-18) mg/dL Creatinine (0.70-1.30) mg/dL Est Cr Clr Drug Dosing mL/min Estimated GFR (MDRD) (>60) BUN/Creatinine Ratio (9-20) Glucose (80-116) mg/dL POC Glucose 122 H (80-116) mg/dL Lactic Acid (0.4-2.0) mmol/L Calcium (8.6-10.2) mg/dL Magnesium (1.8-2.5) mg/dL Total Bilirubin (0.1-1.3) mg/dL AST (5-25) IU/L ALT (12-36) U/L Alkaline Phosphatase (56-112) IU/L Troponin I 9.6 (4.0-60.3) pg/mL C-Reactive Protein 23.9 H* (0.5-0.9) mg/dL Total Protein (6.0-8.0) g/dL Albumin (3.2-4.6) g/dL Globulin g/dL Albumin/Globulin Ratio Lipase 68 L (73-393) U/L SARS-CoV-2 RNA (CEM) (NEGATIVE) 04/18/21 04/18/21 04/18/21 Range/Units 08:25 15:22 15:48 WBC (3.2-10.1) x10-3/uL RBC (3.90-5.90) x10(6)uL Hgb 12.7 L (12.9-17.7) g/dL Hct (38.3-50.1) % MCV (80.8-98.7) fL MCH (27.0-33.3) pg MCHC (28.7-35.3) g/dL RDW (12.4-15.0) % Plt Count (117-477) x10(3)uL MPV (6.7-11.0) fL Add Manual Diff Neutrophils % (Manual) (46-82) % Band Neutrophils % (0-6) % Lymphocytes % (Manual) (13-37) % Monocytes % (Manual) (4-12) % D-Dimer, Quantitative (0.0-0.59) mg/LFEU Sodium (135-145) mmol/L Potassium (3.5-5.3) mmol/L Chloride (100-110) mmol/L Carbon Dioxide (21-32) mmol/L BUN (7-18) mg/dL Creatinine (0.70-1.30) mg/dL Est Cr Clr Drug Dosing mL/min Estimated GFR (MDRD) (>60) BUN/Creatinine Ratio (9-20) Glucose (80-116) mg/dL POC Glucose 225 H D (80-116) mg/dL Lactic Acid (0.4-2.0) mmol/L Calcium (8.6-10.2) mg/dL Magnesium (1.8-2.5) mg/dL Total Bilirubin (0.1-1.3) mg/dL AST (5-25) IU/L ALT (12-36) U/L Alkaline Phosphatase (56-112) IU/L Troponin I (4.0-60.3) pg/mL C-Reactive Protein (0.5-0.9) mg/dL Total Protein (6.0-8.0) g/dL Albumin (3.2-4.6) g/dL Globulin g/dL Albumin/Globulin Ratio Lipase (73-393) U/L SARS-CoV-2 RNA (CEM) Negative (NEGATIVE) 04/18/21 04/18/21 04/18/21 Range/Units 18:09 18:25 18:25 WBC 22.1 H (3.2-10.1) x10-3/uL RBC 3.52 L (3.90-5.90) x10(6)uL Hgb 11.2 L (12.9-17.7) g/dL Hct 34.8 L (38.3-50.1) % MCV 99.0 H (80.8-98.7) fL MCH 31.9 (27.0-33.3) pg MCHC 32.2 (28.7-35.3) g/dL RDW 14.0 (12.4-15.0) % Plt Count 246 (117-477) x10(3)uL MPV 10.5 (6.7-11.0) fL Add Manual Diff Yes Neutrophils % (Manual) 83 H (46-82) % Band Neutrophils % (0-6) % Lymphocytes % (Manual) 9 L (13-37) % Monocytes % (Manual) 8 (4-12) % D-Dimer, Quantitative (0.0-0.59) mg/LFEU Sodium 137 (135-145) mmol/L Potassium 4.8 (3.5-5.3) mmol/L Chloride 102 (100-110) mmol/L Carbon Dioxide 18 L (21-32) mmol/L BUN 17 (7-18) mg/dL Creatinine 1.2 (0.70-1.30) mg/dL Est Cr Clr Drug Dosing 58.91 mL/min Estimated GFR (MDRD) > 60 (>60) BUN/Creatinine Ratio 14.2 (9-20) Glucose 289 H D (80-116) mg/dL POC Glucose 231 H (80-116) mg/dL Lactic Acid (0.4-2.0) mmol/L Calcium 7.9 L (8.6-10.2) mg/dL Magnesium (1.8-2.5) mg/dL Total Bilirubin 3.2 H (0.1-1.3) mg/dL AST 35 H D (5-25) IU/L ALT 60 H (12-36) U/L Alkaline Phosphatase 70 (56-112) IU/L Troponin I (4.0-60.3) pg/mL C-Reactive Protein (0.5-0.9) mg/dL Total Protein 6.1 (6.0-8.0) g/dL Albumin 2.7 L (3.2-4.6) g/dL Globulin 3.4 g/dL Albumin/Globulin Ratio 0.8 Lipase (73-393) U/L SARS-CoV-2 RNA (CEM) (NEGATIVE) 04/18/21 04/18/21 Range/Units 18:25 18:25 WBC (3.2-10.1) x10-3/uL RBC (3.90-5.90) x10(6)uL Hgb (12.9-17.7) g/dL Hct (38.3-50.1) % MCV (80.8-98.7) fL MCH (27.0-33.3) pg MCHC (28.7-35.3) g/dL RDW (12.4-15.0) % Plt Count (117-477) x10(3)uL MPV (6.7-11.0) fL Add Manual Diff Neutrophils % (Manual) (46-82) % Band Neutrophils % (0-6) % Lymphocytes % (Manual) (13-37) % Monocytes % (Manual) (4-12) % D-Dimer, Quantitative (0.0-0.59) mg/LFEU Sodium (135-145) mmol/L Potassium (3.5-5.3) mmol/L Chloride (100-110) mmol/L Carbon Dioxide (21-32) mmol/L BUN (7-18) mg/dL Creatinine (0.70-1.30) mg/dL Est Cr Clr Drug Dosing mL/min Estimated GFR (MDRD) (>60) BUN/Creatinine Ratio (9-20) Glucose (80-116) mg/dL POC Glucose (80-116) mg/dL Lactic Acid 5.6 H* (0.4-2.0) mmol/L Calcium (8.6-10.2) mg/dL Magnesium (1.8-2.5) mg/dL Total Bilirubin (0.1-1.3) mg/dL AST (5-25) IU/L ALT (12-36) U/L Alkaline Phosphatase (56-112) IU/L Troponin I 10.6 (4.0-60.3) pg/mL C-Reactive Protein (0.5-0.9) mg/dL Total Protein (6.0-8.0) g/dL Albumin (3.2-4.6) g/dL Globulin g/dL Albumin/Globulin Ratio Lipase (73-393) U/L SARS-CoV-2 RNA (CEM) (NEGATIVE) Med Orders - Current: Current Medications Hydrocodone Bitart/Acetaminophen (Acetaminophen/Hydrocodone 325-5 Mg Tab) 1 tab PO Q4H PRN PRN Reason: Pain (mild 1-3) Last Admin: 04/18/21 17:31 Dose: 1 tab Documented by: Hydrocodone Bitart/Acetaminophen (Acetaminophen/Hydrocodone 325-5 Mg Tab) 2 tab PO Q4H PRN PRN Reason: Pain (moderate 4-6) Sodium Chloride (Normal Saline) 1,000 mls @ 125 mls/hr IV ASDIRECTED [facility] Last Admin: 04/18/21 06:00 Dose: 125 mls/hr Documented by: Ciprofloxacin/Dextrose 400 mg/ (Premix) 200 mls @ 200 mls/hr IV Q12H [facility] Metronidazole 500 mg/ Premix 100 mls @ 100 mls/hr IV Q8H [facility] Isosorbide Mononitrate (Isosorbide Mononitrate 60 Mg Tab.Er) 120 mg PO DAILY [facility] Lisinopril (Lisinopril 10 Mg Tab) 10 mg PO DAILY [facility] Metoprolol Succinate (Metoprolol Succinate 100 Mg Tab.Er) 100 mg PO DAILY [facility] Morphine Sulfate (Morphine 2 Mg/Ml Syringe) 2 mg IVPUSH Q1H PRN PRN Reason: Pain (severe 7-10) Nitroglycerin (Nitroglycerin 0.4 Mg Tab.Sl) 0.4 mg SL ASDIRECTED [facility] Ondansetron HCl (Ondansetron 4 Mg/2 Ml Sdv) 4 mg IVPUSH Q6H PRN PRN Reason: Nausea/Vomiting Last Admin: 04/18/21 17:31 Dose: 4 mg Documented by: Sodium Chloride (Sodium Chloride 0.9% 10 Ml Syringe) 10 ml FLUSH ASDIRECTED PRN PRN Reason: Keep Vein Open Last Admin: 04/18/21 17:31 Dose: 10 ml Documented by: Discontinued Medications Bupivacaine HCl (Bupivacaine 0.5% 30 Ml Sdv) 20 ml INJECT .STK-MED ONE Stop: 04/18/21 12:12 Last Admin: 04/18/21 12:11 Dose: 20 ml Documented by: Hydromorphone HCl (Hydromorphone 2 Mg/Ml Sdv) 0.5 mg IVPUSH ONETIME ONE Stop: 04/18/21 07:17 Last Admin: 04/18/21 07:21 Dose: 0.5 mg Documented by: Sodium Chloride (Normal Saline) 1,000 mls @ 999 mls/hr IV .BOLUS ONE Stop: 04/18/21 05:32 Last Admin: 04/18/21 04:35 Dose: 999 mls/hr Documented by: Ciprofloxacin/Dextrose 400 mg/ (Premix) 200 mls @ 200 mls/hr IV ONETIME ONE Stop: 04/18/21 08:21 Last Admin: 04/18/21 07:29 Dose: 200 mls/hr Documented by: Metronidazole 500 mg/ Premix 100 mls @ 100 mls/hr IV ONETIME ONE Stop: 04/18/21 08:21 Last Admin: 04/18/21 07:30 Dose: 100 mls/hr Documented by: Ciprofloxacin/Dextrose 400 mg/ (Premix) 200 mls @ 200 mls/hr IV ONETIME ONE Stop: 04/18/21 13:29 Last Admin: 04/18/21 12:26 Dose: 200 mls/hr Documented by: Metronidazole 500 mg/ Premix 100 mls @ 100 mls/hr IV ONETIME ONE Stop: 04/18/21 13:29 Last Admin: 04/18/21 12:37 Dose: 100 mls/hr Documented by: Lactated Ringer's (Ringers, Lactated) 1,000 mls @ 125 mls/hr IV ASDIRECTED [facility] Last Admin: 04/18/21 15:38 Dose: 125 mls/hr Documented by: Iopamidol (Iopamidol 755 Mg/Ml 100 Ml Bottle) 80 ml IV . DIRECTED ONE Stop: 04/18/21 05:47 Last Admin: 04/18/21 05:59 Dose: 80 ml Documented by: Morphine Sulfate (Morphine 4 Mg/Ml Vial) 4 mg IVPUSH ONETIME ONE Stop: 04/18/21 04:33 Last Admin: 04/18/21 04:42 Dose: 4 mg Documented by: Morphine Sulfate (Morphine 4 Mg/Ml Vial) 4 mg IVPUSH ONETIME ONE Stop: 04/18/21 05:20 Last Admin: 04/18/21 05:23 Dose: 4 mg Documented by: Morphine Sulfate (Morphine 2 Mg/Ml Syringe) 2 mg IM Q2H PRN PRN Reason: Pain Morphine Sulfate (Morphine 2 Mg/Ml Syringe) 2 mg IVPUSH Q2H PRN PRN Reason: Pain Last Admin: 04/18/21 10:06 Dose: 2 mg Documented by: Ondansetron HCl (Ondansetron 4 Mg/2 Ml Sdv) 4 mg IVPUSH ONETIME ONE Stop: 04/18/21 04:33 Last Admin: 04/18/21 04:39 Dose: 4 mg Documented by: Sepsis Event Note - Evaluation Sepsis Screening Result: No Definite Risk - Focused Exam Vital Signs: Vital Signs Temp Temp Temp Pulse Resp BP Pulse Ox 04/18/21 20:33 124 H 32 H 107/75 100 04/18/21 20:15 97.4 F 125 H 16 105/63 100 04/18/21 20:05 125 H 16 100/72 99 04/18/21 19:30 97.6 F 130 H 30 H 90/65 99 04/18/21 19:18 98.1 F 120 H 20 94/67 99 04/18/21 18:36 121 H 20 98/68 97 04/18/21 17:50 98.0 F 115 H 20 117/77 99 04/18/21 17:24 97.9 F 105 H 16 118/76 98 04/18/21 16:48 98.1 F 102 H 18 117/76 97 04/18/21 16:35 98.1 F 98 16 108/78 99 04/18/21 16:16 98.2 F 103 H 16 112/78 99 04/18/21 16:15 120 H 20 86/57 L 99 04/18/21 16:00 97.5 F 95 16 112/71 94 L 04/18/21 15:35 18 115/70 99 04/18/21 15:30 16 95/68 97 04/18/21 15:25 15 101/65 98 04/18/21 15:20 16 112/72 98 04/18/21 15:15 15 102/71 98 04/18/21 15:10 97.2 F 16 110/64 97 04/18/21 15:05 12 111/68 98 04/18/21 15:00 14 123/66 97 04/18/21 14:55 14 124/68 95 04/18/21 14:50 20 127/76 95 04/18/21 14:45 12 124/77 99 04/18/21 14:40 18 133/79 99 04/18/21 14:35 98.9 F 18 131/77 98 04/18/21 09:10 99.0 F 110 H 178/98 H 96 - Problem List Review Problem List Initiated/Reviewed/Updated: Yes - My Orders Last 24 Hours: Active Orders 24 hr Category Date Time Status Admission Status [Patient Status] [ADT] Routine ADT 04/18/21 08:29 Active Patient Status [ADT] Routine ADT 04/18/21 14:19 Active Accu Check [Blood Glucose Check, Bedside] [RC] 07,17 Care 04/18/21 09:26 Active Antiembolic Devices [RC] .Routine Care 04/18/21 14:21 Active EKG Documentation Completion [RC] ASDIRECTED Care 04/18/21 18:14 Active Intake and Output [RC] QSHIFT Care 04/18/21 14:20 Active Oxygen Therapy [RC] PRN Care 04/18/21 14:19 Active Oxygen Therapy [RC] PRN Care 04/18/21 14:23 Active RT Incentive Spirometry [RC] Q1HWA Care 04/18/21 14:19 Active VTE/DVT Education [RC] Click to Edit Care 04/18/21 14:21 Active Vital Signs [RC] PER UNIT ROUTINE Care 04/18/21 14:19 Active Vital Signs [RC] PER UNIT ROUTINE Care 04/18/21 14:23 Active Consult to Physician [CONS] Routine Cons 04/18/21 09:28 Ordered Clear Liquid Diet [DIET] Diet 04/18/21 Dinner Ordered Abdomen Pelvis w Cont [CT] Stat Exams 04/18/21 05:24 Taken Ang Chest [CT] Stat Exams 04/18/21 05:24 Taken CBC WITH AUTO DIFF [HEME] AM Lab 04/19/21 05:11 Ordered COMPREHENSIVE METABOLIC PN,CMP [CHEM] AM Lab 04/19/21 05:11 Ordered LACTIC ACID [CHEM] Routine Lab 04/18/21 21:25 Ordered Acetaminophen/HYDROcodone [[place] 325-5 MG] Med 04/18/21 14:19 Active 1 tab PO Q4H PRN Acetaminophen/HYDROcodone [[place] 325-5 MG] Med 04/18/21 14:19 Active 2 tab PO Q4H PRN Ciprofloxacin in D5W [Cipro in D5W 400 MG/200 ML] 400 Med 04/19/21 01:00 Activ e mg Premix Bag 1 bag IV Q12H Isosorbide Mononitrate [Imdur] Med 04/19/21 09:00 Active 120 mg PO DAILY Metoprolol Succinate [Toprol XL] Med 04/19/21 09:00 Active 100 mg PO DAILY Morphine Med 04/18/21 14:19 Active 2 mg IVPUSH Q1H PRN Nitroglycerin [Nitrostat] Med 04/18/21 09:30 Active 0.4 mg SL ASDIRECTED Ondansetron [Zofran] Med 04/18/21 14:19 Active 4 mg IVPUSH Q6H PRN Sodium Chloride 0.9% [Normal Saline] 1,000 ml Med 04/18/21 04:45 Active IV ASDIRECTED Sodium Chloride 0.9% [Saline Flush] Med 04/18/21 04:19 Active 10 ml FLUSH ASDIRECTED PRN lisinopriL [Prinivil] Med 04/19/21 09:00 Active 10 mg PO DAILY metroNIDAZOLE/Normal Saline [Flagyl in NS 500 MG/100 ML Med 04/18/21 20:00 Active ] 500 mg Premix Bag 1 bag IV Q8H DVT/VTE Prophylaxis Reflex [OM.PC] Per Unit Routine Oth 04/18/21 14:21 Ordered Peripheral IV Insertion Adult [OM.PC] Routine Oth 04/18/21 04:19 Ordered Pulse Oximetry Continuous Monitoring [OM.PC] Routine Oth 04/18/21 15:00 Ordered Resuscitation Status Routine Resus Stat 04/18/21 14:19 Ordered EKG 12 Lead [EK] Routine Ther 04/18/21 04:19 Ordered EKG 12 Lead [EK] Routine Ther 04/18/21 18:14 Ordered Medication Orders Hydrocodone Bitart/Acetaminophen (Acetaminophen/Hydrocodone 325-5 Mg Tab) 1 tab PO Q4H PRN PRN Reason: Pain (mild 1-3) Last Admin: 04/18/21 17:31 Dose: 1 tab Documented by: VERA Hydrocodone Bitart/Acetaminophen (Acetaminophen/Hydrocodone 325-5 Mg Tab) 2 tab PO Q4H PRN PRN Reason: Pain (moderate 4-6) Sodium Chloride (Normal Saline) 1,000 mls @ 125 mls/hr IV ASDIRECTED [facility] Last Admin: 04/18/21 06:00 Dose: 125 mls/hr Documented by: ESTHER Ciprofloxacin/Dextrose 400 mg/ (Premix) 200 mls @ 200 mls/hr IV Q12H [facility] Metronidazole 500 mg/ Premix 100 mls @ 100 mls/hr IV Q8H [facility] Isosorbide Mononitrate (Isosorbide Mononitrate 60 Mg Tab.Er) 120 mg PO DAILY [facility] Lisinopril (Lisinopril 10 Mg Tab) 10 mg PO DAILY [facility] Metoprolol Succinate (Metoprolol Succinate 100 Mg Tab.Er) 100 mg PO DAILY [facility] Morphine Sulfate (Morphine 2 Mg/Ml Syringe) 2 mg IVPUSH Q1H PRN PRN Reason: Pain (severe 7-10) Nitroglycerin (Nitroglycerin 0.4 Mg Tab.Sl) 0.4 mg SL ASDIRECTED [facility] Ondansetron HCl (Ondansetron 4 Mg/2 Ml Sdv) 4 mg IVPUSH Q6H PRN PRN Reason: Nausea/Vomiting Last Admin: 04/18/21 17:31 Dose: 4 mg Documented by: VERA Sodium Chloride (Sodium Chloride 0.9% 10 Ml Syringe) 10 ml FLUSH ASDIRECTED PRN PRN Reason: Keep Vein Open Last Admin: 04/18/21 17:31 Dose: 10 ml Documented by: VERA - Assessment Assessment (Free Text/Narrative):: Septic Shock post cholecystectomy - Plan Plan (Free Text/Narrative):: Transfer [facility] Amb[facility]
--- NOTE | 2021-04-18 21:18 | PCM.SN.2 ---
- Free Text/Narrative Note: I was called by nursing staff to see the patient and asked by Dr. Mccabe to see the patient secondary to hypotension and tachycardia. This patient was seen by myself earlier secondary to acute cholecystitis and was admitted to Dr. Mccabe and underwent laparoscopic cholecystectomy. The patient felt tachycardia postoperatively right fluid resuscitation, the patient has continued to have blood pressures in the 80-90 systolic range with a pulse rate in the 120s. I was shown an EKG earlier which did show a sinus tachycardia but no real other changes from the patient's previous EKG performed this morning. I am seeing the patient now at a p.m. and he is somewhat lethargic and his blood pressure is 90 systolic with 124. He looks quite pale. He is somewhat cool to touch. He did have labs performed earlier which showed a white blood count of count of 22,000 and a hemoglobin of 11 which was down from 14 at his initial presentation. His lactic acid was 5.6. Troponin is pending at this time. The patient is being transferred to a monitored bed and Dr. Mccabe is coming in to see the patient. I have had the nursing staff start 2 L IV bolus at present. I have also asked the nursing staff placed a Benavides catheter. I had discussed with the patient's that the patient appeared to be having sepsis with shock related to his acute cholecystitis. It is possible this could also represent hypovolemic shock from blood loss as well but his abdomen is not rigid or distended at this point. I do feel the patient will need transfer to a higher level of care and I had previously discussed this with Dr. Mccabe. The patient's did instruct me to call and discuss her 's case with the doctors at [facility] in [place]. I did call and discuss the patient's case with Dr. Pratt, general surgeon at [facility] in [place], he has agreed to accept the patient in transfer. He does agree with the IV fluid resuscitation and close monitoring. The patient had previously received ciprofloxacin and Flagyl IV. The patient will need [facility] ambulance transport to [facility] in [place]. [facility] ambulance service has been contacted and will be transporting the patient. Dr. Mccabe has arrived and will coordinate further for the transfer. Assessment: Tachycardia and hypotension with shock. Most probably septic shock but could also be hypovolemic shock related to blood loss. Plan: The patient is having ongoing fluid resuscitation. He is going to be transferred to [facility] in [place] for direct admission to their intensive care unit. Please see Dr. Mccabe's note for further information. Total critical care time spent with the patient was 30 minutes.
[2021-04-19] MEDS ORDERED: Ciprofloxacin in D5W 400 MG in Premix Bag 1 BAG IV SCH ×2 (01:00)
[2021-04-19] MEDS ORDERED: Isosorbide Mononitrate 60 MG Tab.ER PO SCH (09:00)
[2021-04-19] MEDS ORDERED: Metoprolol Succinate 100 MG Tab.ER PO SCH (09:00)
[2021-04-19] MEDS ORDERED: Lisinopril 10 MG Tab PO SCH (09:00)
== END 2021-04-18 21:35 ==
LOC: FB.ED 03:43 → FB.SDS 09:03 → FB.MS 09:04 → FB.SDS 09:04 → FB.MS 21:35
PROVIDERS: ATTEND Family Medicine
DX: K80.00 Calculus of gallbladder with acute cholecystitis without obstruction (principal); K82.A1 Gangrene of gallbladder in cholecystitis; E11.9 Type 2 diabetes mellitus without complications; I10 Essential (primary) hypertension; I25.10 Atherosclerotic heart disease of native coronary artery without angina pectoris; Z01.812 Encounter for preprocedural laboratory examination; Z88.0 Allergy status to penicillin; Z79.899 Other long term (current) drug therapy; Z79.82 Long term (current) use of aspirin; Z95.1 Presence of aortocoronary bypass graft; Z79.84 Long term (current) use of oral hypoglycemic drugs; Z20.822 Contact with and (suspected) exposure to COVID-19
CPT/HCPCS: 00790; 36415; 47562; 51702; 71045; 71275; 74177; 80053; 82947; 83605; 83690; 83735; 84484; 85018; 85025; 85379; 86140; 87635; 88304; 93005; 94150; 96365; 96368; 96375; 96376; 99285; A9270; J0131; J0330; J0744; J1170; J2250; J2270; J2405; J2704; J2710; J3010; J3490; J7030; J7120; Q9967; 93010; U0002

== ENCOUNTER 2023-07-25 08:19 | Day surgery (SDC) | payer MEDICARE, OTHER ==
[2023-07-25] MEDS ORDERED: Propofol 200 MG/20 ML SDV IV ONE (08:20)
[2023-07-25] MEDS ORDERED: Glycopyrrolate 0.2 MG/ML 5 ML MDV IV ONE (08:20)
[2023-07-25] MEDS ORDERED: Sodium Chloride 0.9% 10 ML Syringe FLUSH PRN (08:30)
[2023-07-25] MEDS ORDERED: Lactated Ringers 1,000 ML IV SCH (08:30)
[2023-07-25] MEDS ORDERED: Simethicone Drops 40 MG/0.6 ML 30 ML Bottle ONE (09:45)
== END 2023-07-25 11:00 | disposition home or self-care (01) ==
LOC: FB.SDS 08:19
PROVIDERS: ATTEND Surgery
DX: Z12.11 Encounter for screening for malignant neoplasm of colon (principal); K63.5 Polyp of colon; K40.90 Unilateral inguinal hernia, without obstruction or gangrene, not specified as recurrent; I25.10 Atherosclerotic heart disease of native coronary artery without angina pectoris; E11.65 Type 2 diabetes mellitus with hyperglycemia; K21.9 Gastro-esophageal reflux disease without esophagitis; E78.5 Hyperlipidemia, unspecified; I10 Essential (primary) hypertension; I25.2 Old myocardial infarction; E66.9 Obesity, unspecified; G47.30 Sleep apnea, unspecified; Z98.890 Other specified postprocedural states; Z88.0 Allergy status to penicillin; Z79.84 Long term (current) use of oral hypoglycemic drugs; Z79.02 Long term (current) use of antithrombotics/antiplatelets; Z87.891 Personal history of nicotine dependence; Z68.30 Body mass index [BMI] 30.0-30.9, adult
CPT/HCPCS: 00812; 45385; 82947; 88305; A9270; J2704; J3490; J7120